=== PATIENT | male | born 1990 | race Caucasian/White ===

== ENCOUNTER 2019-08-27 06:19 | Emergency (ER) | payer OTHER ==
[~2019-08-27] VITALS: Ht 188 cm; Wt 81.6 kg
[2019-08-27] MEDS ORDERED: NORFLEX100MG PO (12:13)
== END 2019-08-27 13:16 | disposition home or self-care (01) ==
LOC: ER 06:19
DX: B34.9 Viral infection, unspecified (principal)